=== PATIENT | male | born 1960 | race Caucasian/White ===

== ENCOUNTER 2019-01-02 06:55 | Day surgery (SDC) | payer OTHER ==
[~2019-01-02] VITALS: Ht 175.3 cm; Wt 136.1 kg
[2019-01-02] MEDS ORDERED: fentaNYL 0.05 MG/ML VIAL ONE (08:36)
[2019-01-02] MEDS ORDERED: LIDOCAINE 2% 100 MG/5 ML UJET TP ONE (08:36)
[2019-01-02] MEDS ORDERED: fentaNYL 0.05 MG/ML VIAL IVP ONE (09:20)
== END 2019-01-02 09:31 | disposition home or self-care (01) ==
LOC: MDS 06:55 → MMU 06:59 → MDS 09:31
PROVIDERS: ATTEND Internal Medicine Gastroenterology
DX: R14.0 Abdominal distension (gaseous) (principal); D12.3 Benign neoplasm of transverse colon; D12.4 Benign neoplasm of descending colon; K76.0 Fatty (change of) liver, not elsewhere classified; E66.9 Obesity, unspecified; E11.9 Type 2 diabetes mellitus without complications; I10 Essential (primary) hypertension; E78.5 Hyperlipidemia, unspecified; Z79.84 Long term (current) use of oral hypoglycemic drugs; Z79.899 Other long term (current) drug therapy; Z68.41 Body mass index [BMI] 40.0-44.9, adult
CPT/HCPCS: 45385; J3010